=== PATIENT | female | born 1935 | race Two or more races ===

== ENCOUNTER 2017-09-09 15:38 | Inpatient (IN) | payer MEDICARE, MEDICAID ==
[~2017-09-09] VITALS: Ht 162.6 cm; Wt 96.9 kg
[~2017-09-09 15:38] MED LIST: ATOR40TA52 PO; CALC500T87 PO; NAPR500T31 PO; OMEP20CA74 OR; TRAM50TA2 PO; VALS160T51 PO
[2017-09-09] MEDS ORDERED: FUROSEMIDE 40 MG/4 ML VIAL IV ONE (16:00)
[2017-09-09 16:54] LABS: Basophils # (auto) 0 uL; Basophils % (auto) 0.7 % (0.0-2.0); Eosinophils # (auto) 0.2 uL; Eosinophils % (auto) 5.5 % (0.0-7.0); Hematocrit 29.6 % (36.0-46.0); Hemoglobin 9.8 g/dL (12.2-16.2); Lymphocytes # (auto) 1.2 uL; Lymphocytes % (auto) 28.2 % (10.0-50.0); Mean Corpuscular Hemoglobin 30.7 pg (28.0-32.0); Mean Corpuscular Hgb Conc. 33.1 g/dL (32.0-36.0); Mean Corpuscular Volume 92.6 fL (80.0-100.0); Monocytes # (auto) 0.4 uL; Monocytes % (auto) 8.2 % (0.0-12.0); Neutrophils # (auto) 2.5 uL; Neutrophils % (auto) 57.4 % (37.0-80.0); Nucleated Red Blood Cells % 0.1 %; Platelet Count (auto) 190 10^3/uL (140-450); Red Blood Cells 3.19 10^6/uL (4.0-5.20); Red Cell Distribution Width 17.4 % (11.8-14.3); White Blood Cell 4.3 10^3/uL (4.4-10.8)
[2017-09-09 17:22] LABS: Alanine Aminotransferase 18 U/L (13-56); Albumin 2.8 g/dL (3.4-5.0); Alkaline Phosphatase 91 U/L (45-117); Anion Gap 6 (5-15); Aspartate Aminotransferase 12 U/L (15-37); BUN/Creatinine Ratio 13.7; Bilirubin, Total 0.3 mg/dL (0.2-1.0); Blood Urea Nitrogen 26 mg/dL (7-18); Calcium 8.7 mg/dL (8.5-10.1); Carbon Dioxide 30 mmol/L (21-32); Chloride 103 mmol/L (98-107); GFR African American 32 mL/min; GFR Non-African American 27 mL/min; Glucose 191 mg/dL (74-106); Magnesium 2.2 mg/dL (1.6-2.6); Potassium 5.3 mmol/L (3.5-5.1); Sodium 139 mmol/L (136-145); Total Protein 6.8 g/dL (6.4-8.2)
[2017-09-09 20:00] LABS: Urine Bacteria MOD /hpf (None Seen); Urine Blood Negative /uL (Negative); Urine Hyaline Cast FEW /lpf (0 - 2); Urine Mucus FEW (None Seen); Urine Specific Gravity 1.007 (1.001-1.035); Urine WBC 6 /hpf (0 - 5)
[2017-09-09] MEDS ORDERED: NITROGLYCERIN 0.4 MG SL TAB SL PRN (21:45)
[2017-09-09] MEDS ORDERED: TEMAZEPAM 15 MG CAP PO PRN (21:45)
[2017-09-09] MEDS ORDERED: MORPHINE SULFATE 8mg/ml INJ SDV IV PRN (21:45)
[2017-09-09] MEDS ORDERED: ACETAMINOPHEN 325 MG TAB PO PRN (21:45)
[2017-09-09] MEDS ORDERED: HYDROcodone-ACET 5/325MG TAB PO PRN (21:45)
[2017-09-09] MEDS ORDERED: AZITHROMYCIN 500MG/ 250ML 250 ML IV ONE (21:45)
[2017-09-09] MEDS ORDERED: cefTRIAXone 1GM/10ml IVPUSH 10 ML IV ONE (21:45)
[2017-09-09] MEDS ORDERED: ONDANSETRON HCL 4 MG/2 ML VIAL IV PRN (21:45)
[2017-09-09] MEDS ORDERED: DEXTROSE (50%) 50ML SYRG IV PRN (21:45)
[2017-09-09] MEDS: ATORVASTATIN 20 MG TAB PO SCH (22:13)
[2017-09-09 23:20] VITALS: BP 145/58
[2017-09-10] MEDS: ACCU-CHEK COMFORT CURVE STRIP VI SCH ×5 (00:39→23:49)
[2017-09-10] MEDS: InsuLIN REG 1unit/0.01ml Soln (100units/ml) SC SCH ×5 (01:37→23:49)
[2017-09-10] MEDS ORDERED: AMIO200T33 PO (03:19)
[2017-09-10] MEDS ORDERED: ALLO100T PO (03:20)
[2017-09-10] MEDS ORDERED: FURO20TA3 PO (03:20)
[2017-09-10] MEDS ORDERED: OMEP20TA PO (03:22)
[2017-09-10] MEDS ORDERED: METO-158 PO (03:23)
[2017-09-10] MEDS ORDERED: ACET-1156 PO (03:24)
[2017-09-10] MEDS ORDERED: FERR-20 PO (03:25)
[2017-09-10 04:00] VITALS: BP 106/42
[2017-09-10 06:19] LABS: Basophils # (auto) 0 uL; Basophils % (auto) 0.8 % (0.0-2.0); Eosinophils # (auto) 0.3 uL; Eosinophils % (auto) 6.4 % (0.0-7.0); Hematocrit 28.2 % (36.0-46.0); Hemoglobin 9.1 g/dL (12.2-16.2); Lymphocytes # (auto) 1.3 uL; Lymphocytes % (auto) 30.9 % (10.0-50.0); Mean Corpuscular Hemoglobin 29.9 pg (28.0-32.0); Mean Corpuscular Hgb Conc. 32.1 g/dL (32.0-36.0); Monocytes # (auto) 0.4 uL; Monocytes % (auto) 10.7 % (0.0-12.0); Neutrophils # (auto) 2.1 uL; Neutrophils % (auto) 51.2 % (37.0-80.0); Nucleated Red Blood Cells % 0.1 %; Platelet Count (auto) 159 10^3/uL (140-450); Red Blood Cells 3.03 10^6/uL (4.0-5.20); Red Cell Distribution Width 17.2 % (11.8-14.3); White Blood Cell 4.2 10^3/uL (4.4-10.8)
[2017-09-10 06:40] LABS: Albumin 2.7 g/dL (3.4-5.0); BUN/Creatinine Ratio 14.2; Bilirubin, Total 0.2 mg/dL (0.2-1.0); Calcium 8.7 mg/dL (8.5-10.1); Potassium 4.8 mmol/L (3.5-5.1); Total Protein 6.4 g/dL (6.4-8.2)
[2017-09-10 08:47] VITALS: BP 110/44
[2017-09-10] MEDS: cefTRIAXone 1GM/10ml IVPUSH 10 ML IV SCH (09:57)
[2017-09-10] MEDS ORDERED: METOPROLOL TARTRATE 50 MG TAB PO SCH (10:00)
[2017-09-10] MEDS ORDERED: VALSARTAN 80 MG TAB PO SCH (10:00)
[2017-09-10] MEDS ORDERED: FUROSEMIDE 40 MG TAB PO SCH (10:00)
[2017-09-10] MEDS ORDERED: ENOXAPARIN SOD 30 MG/0.3 ML SYRINGE SC SCH (10:00)
[2017-09-10] MEDS: amLODIPine BESYLATE 5 MG TAB PO SCH (10:00)
[2017-09-10] MEDS: PANTOPRAZOLE 40 MG TAB PO SCH (10:56)
[2017-09-10] MEDS: AZITHROMYCIN 500MG/ 250ML 250 ML IV SCH (11:02)
[2017-09-10 13:13] VITALS: BP 131/51
[2017-09-10] MEDS: IPRATROPIUM BROM 0.5 MG/2.5ML INH SOL NEB SCH ×3 (14:00→23:26)
[2017-09-10] MEDS: ALBUTEROL SULF 2.5 MG/0.5ML(0.5%) NEB SOLN NEB SCH ×3 (14:00→23:26)
[2017-09-10] MEDS: methylPREDNISolone SOD SUCC 40 MG/ML VL IV SCH ×2 (15:58→21:55)
[2017-09-10 17:46] VITALS: BP 153/70
[2017-09-10 19:20] VITALS: BP 153/70
[2017-09-10] MEDS: ATORVASTATIN 20 MG TAB PO SCH (21:56)
[2017-09-10 22:00] VITALS: BP 147/57
[2017-09-11] MEDS: IPRATROPIUM BROM 0.5 MG/2.5ML INH SOL NEB SCH ×6 (02:37→21:56)
[2017-09-11] MEDS: ALBUTEROL SULF 2.5 MG/0.5ML(0.5%) NEB SOLN NEB SCH ×6 (02:38→21:56)
[2017-09-11 04:00] VITALS: BP 125/55
[2017-09-11] MEDS: ACCU-CHEK COMFORT CURVE STRIP VI SCH ×4 (05:36→21:44)
[2017-09-11] MEDS: InsuLIN REG 1unit/0.01ml Soln (100units/ml) SC SCH ×4 (05:36→21:44)
[2017-09-11] MEDS: methylPREDNISolone SOD SUCC 40 MG/ML VL IV SCH ×3 (05:37→21:42)
[2017-09-11 06:56] LABS: Basophils # (auto) 0 uL; Basophils % (auto) 0.1 % (0.0-2.0); Eosinophils # (auto) 0 uL; Eosinophils % (auto) 0.1 % (0.0-7.0); Hematocrit 29.2 % (36.0-46.0); Hemoglobin 9.6 g/dL (12.2-16.2); Lymphocytes # (auto) 0.3 uL; Mean Corpuscular Hemoglobin 30.2 pg (28.0-32.0); Mean Corpuscular Hgb Conc. 32.9 g/dL (32.0-36.0); Mean Corpuscular Volume 91.9 fL (80.0-100.0); Monocytes # (auto) 0.1 uL; Monocytes % (auto) 1.8 % (0.0-12.0); Neutrophils # (auto) 3.2 uL; Nucleated Red Blood Cells % 0.1 %; Platelet Count (auto) 175 10^3/uL (140-450); Red Blood Cells 3.17 10^6/uL (4.0-5.20); Red Cell Distribution Width 16.7 % (11.8-14.3); White Blood Cell 3.6 10^3/uL (4.4-10.8)
[2017-09-11 07:18] LABS: Albumin 2.8 g/dL (3.4-5.0); BUN/Creatinine Ratio 17.6; Calcium 8.9 mg/dL (8.5-10.1); Potassium 5.1 mmol/L (3.5-5.1)
[2017-09-11 07:21] LABS: Bilirubin, Total 0.3 mg/dL (0.2-1.0)
[2017-09-11] MEDS: cefTRIAXone 1GM/10ml IVPUSH 10 ML IV SCH (08:17)
[2017-09-11 09:00] VITALS: BP 141/62
[2017-09-11] MEDS ORDERED: guaiFENesin 200 MG/10 ML UD GT PRN (09:15)
[2017-09-11] MEDS ORDERED: INSULIN LANTUS (GLARGINE) 1 /0.01ml (100units/ml) SC SCH (09:15)
[2017-09-11] MEDS: FUROSEMIDE 100 MG/10ML VIAL IV SCH ×2 (09:38→17:48)
[2017-09-11] MEDS: AZITHROMYCIN 500MG/ 250ML 250 ML IV SCH (09:39)
[2017-09-11] MEDS: VALSARTAN 80 MG TAB PO SCH (09:40)
[2017-09-11] MEDS: PANTOPRAZOLE 40 MG TAB PO SCH (09:40)
[2017-09-11] MEDS: amLODIPine BESYLATE 5 MG TAB PO SCH (09:41)
[2017-09-11] MEDS: METOPROLOL TARTRATE 50 MG TAB PO SCH (09:41)
[2017-09-11] MEDS: INSULIN LANTUS (GLARGINE) 1 /0.01ml (100units/ml) SC SCH ×2 (09:52→21:44)
[2017-09-11] MEDS ORDERED: FUROSEMIDE 40 MG TAB PO SCH (10:00)
[2017-09-11 13:00] VITALS: BP 167/75
[2017-09-11 13:56] VITALS: BP 166/75
[2017-09-11 18:13] VITALS: BP 140/50
[2017-09-11] MEDS: ATORVASTATIN 20 MG TAB PO SCH (21:43)
[2017-09-11 22:00] VITALS: BP 125/63
[2017-09-12] MEDS: IPRATROPIUM BROM 0.5 MG/2.5ML INH SOL NEB SCH ×7 (02:35→23:03)
[2017-09-12] MEDS: ALBUTEROL SULF 2.5 MG/0.5ML(0.5%) NEB SOLN NEB SCH ×7 (02:36→23:03)
[2017-09-12 05:06] VITALS: BP 128/51
[2017-09-12] MEDS: methylPREDNISolone SOD SUCC 40 MG/ML VL IV SCH (06:10)
[2017-09-12] MEDS: ACCU-CHEK COMFORT CURVE STRIP VI SCH ×4 (06:10→22:02)
[2017-09-12] MEDS: InsuLIN REG 1unit/0.01ml Soln (100units/ml) SC SCH ×4 (06:11→22:01)
[2017-09-12] MEDS: FUROSEMIDE 100 MG/10ML VIAL IV SCH ×2 (06:17→17:10)
[2017-09-12 07:07] LABS: Basophils # (auto) 0 uL; Eosinophils # (auto) 0 uL; Hematocrit 28.5 % (36.0-46.0); Hemoglobin 9.5 g/dL (12.2-16.2); Lymphocytes # (auto) 0.6 uL; Lymphocytes % (auto) 7.6 % (10.0-50.0); Mean Corpuscular Hgb Conc. 33.2 g/dL (32.0-36.0); Mean Corpuscular Volume 90.1 fL (80.0-100.0); Monocytes # (auto) 0.2 uL; Monocytes % (auto) 2.5 % (0.0-12.0); Neutrophils % (auto) 89.9 % (37.0-80.0); Platelet Count (auto) 200 10^3/uL (140-450); Red Blood Cells 3.16 10^6/uL (4.0-5.20); Red Cell Distribution Width 17.2 % (11.8-14.3); White Blood Cell 7.8 10^3/uL (4.4-10.8)
[2017-09-12 07:26] LABS: BUN/Creatinine Ratio 21.2; Calcium 9.2 mg/dL (8.5-10.1); Potassium 5.3 mmol/L (3.5-5.1)
[2017-09-12 08:00] VITALS: BP 149/65
[2017-09-12 09:00] VITALS: BP 149/65
[2017-09-12] MEDS: AZITHROMYCIN 500MG/ 250ML 250 ML IV SCH (11:46)
[2017-09-12] MEDS: cefTRIAXone 1GM/10ml IVPUSH 10 ML IV SCH (11:47)
[2017-09-12] MEDS: METOPROLOL TARTRATE 50 MG TAB PO SCH (11:48)
[2017-09-12] MEDS: VALSARTAN 80 MG TAB PO SCH (11:48)
[2017-09-12] MEDS: amLODIPine BESYLATE 5 MG TAB PO SCH (11:49)
[2017-09-12] MEDS: PANTOPRAZOLE 40 MG TAB PO SCH (11:49)
[2017-09-12] MEDS: INSULIN LANTUS (GLARGINE) 1 /0.01ml (100units/ml) SC SCH ×2 (11:50→22:02)
[2017-09-12 12:28] VITALS: BP 148/70
[2017-09-12] MEDS ORDERED: predniSONE 20 MG TAB PO SCH (13:00)
[2017-09-12 17:00] VITALS: BP 150/72
[2017-09-12 22:00] VITALS: BP 135/56
[2017-09-12] MEDS: ATORVASTATIN 20 MG TAB PO SCH (22:01)
[2017-09-13 05:00] VITALS: BP 134/47
[2017-09-13] MEDS: FUROSEMIDE 100 MG/10ML VIAL IV SCH ×3 (06:07→17:40)
[2017-09-13] MEDS: ACCU-CHEK COMFORT CURVE STRIP VI SCH ×3 (06:07→17:17)
[2017-09-13] MEDS: InsuLIN REG 1unit/0.01ml Soln (100units/ml) SC SCH ×3 (06:08→17:00)
[2017-09-13] MEDS: IPRATROPIUM BROM 0.5 MG/2.5ML INH SOL NEB SCH ×4 (06:42→19:44)
[2017-09-13] MEDS: ALBUTEROL SULF 2.5 MG/0.5ML(0.5%) NEB SOLN NEB SCH ×4 (06:42→19:44)
[2017-09-13 07:11] LABS: Basophils # (auto) 0 uL; Basophils % (auto) 0.1 % (0.0-2.0); Eosinophils # (auto) 0 uL; Hemoglobin 9.3 g/dL (12.2-16.2); Lymphocytes # (auto) 0.9 uL; Lymphocytes % (auto) 11.2 % (10.0-50.0); Mean Corpuscular Hemoglobin 30.3 pg (28.0-32.0); Mean Corpuscular Hgb Conc. 33.4 g/dL (32.0-36.0); Mean Corpuscular Volume 90.8 fL (80.0-100.0); Monocytes # (auto) 0.6 uL; Monocytes % (auto) 7.6 % (0.0-12.0); Neutrophils # (auto) 6.2 uL; Neutrophils % (auto) 81.1 % (37.0-80.0); Platelet Count (auto) 182 10^3/uL (140-450); Red Blood Cells 3.08 10^6/uL (4.0-5.20); Red Cell Distribution Width 17.2 % (11.8-14.3); White Blood Cell 7.6 10^3/uL (4.4-10.8)
[2017-09-13 07:29] LABS: Potassium 4.9 mmol/L (3.5-5.1)
[2017-09-13 07:38] LABS: BUN/Creatinine Ratio 26.3; Calcium 9.1 mg/dL (8.5-10.1)
[2017-09-13 08:00] VITALS: BP 139/55
[2017-09-13] MEDS: PANTOPRAZOLE 40 MG TAB PO SCH (09:45)
[2017-09-13] MEDS: AZITHROMYCIN 500MG/ 250ML 250 ML IV SCH (09:45)
[2017-09-13] MEDS: cefTRIAXone 1GM/10ml IVPUSH 10 ML IV SCH (09:45)
[2017-09-13] MEDS: VALSARTAN 80 MG TAB PO SCH (09:46)
[2017-09-13] MEDS: amLODIPine BESYLATE 5 MG TAB PO SCH (09:46)
[2017-09-13] MEDS: METOPROLOL TARTRATE 50 MG TAB PO SCH (09:46)
[2017-09-13] MEDS: INSULIN LANTUS (GLARGINE) 1 /0.01ml (100units/ml) SC SCH (09:47)
[2017-09-13 11:59] VITALS: BP 128/54
[2017-09-13 12:00] VITALS: BP 128/54
[2017-09-13 17:00] VITALS: BP 134/55
[2017-09-13 17:16] VITALS: BP 128/54
== END 2017-09-13 20:08 | disposition home health service (06) | DRG 139 ==
LOC: EDBD 15:38 → EDUNIT# 15:38 → ER 15:41 → TELE 15:42 → TELE-EAST 23:19 → OBSVTOIN 23:20 → TELE-EAST 23:58
PROVIDERS: ADMIT Nurse Practitioner; ATTEND Internal Medicine
DX: J18.1 Lobar pneumonia, unspecified organism (principal); J96.00 Acute respiratory failure, unspecified whether with hypoxia or hypercapnia; I50.33 Acute on chronic diastolic (congestive) heart failure; E44.0 Moderate protein-calorie malnutrition; N18.6 End stage renal disease; E11.22 Type 2 diabetes mellitus with diabetic chronic kidney disease; I13.2 Hypertensive heart and chronic kidney disease with heart failure and with stage 5 chronic kidney disease, or end stage renal disease; N18.3 Chronic kidney disease, stage 3 (moderate); E87.5 Hyperkalemia; I50.9 Heart failure, unspecified; G47.00 Insomnia, unspecified; E11.65 Type 2 diabetes mellitus with hyperglycemia; E78.5 Hyperlipidemia, unspecified; J45.909 Unspecified asthma, uncomplicated; R00.1 Bradycardia, unspecified; Z68.36 Body mass index [BMI] 36.0-36.9, adult; I25.2 Old myocardial infarction; Z88.8 Allergy status to other drugs, medicaments and biological substances
CPT/HCPCS: 36415; 36600; 71045; 71250; 80048; 80053; 81001; 82805; 82962; 83036; 83605; 83735; 83880; 84132; 84484; 85025; 87040; 87081; 93005; 93306; 94640; 94761; 96365; 96375; 96376; 97116; 97163; 97530; G0378; J1815